=== PATIENT | male | born 1985 | race Caucasian/White ===

== ENCOUNTER 2021-11-01 20:23 | Emergency (ER) | payer SELFPAY ==
--- NOTE | 2021-11-01 23:11 | NUR ---
Pt not in waiting room.
== END 2021-11-01 23:12 | disposition left against medical advice (07) ==
LOC: ER 20:23
DX: Z53.21 Procedure and treatment not carried out due to patient leaving prior to being seen by health care provider (principal)

== ENCOUNTER 2022-09-08 13:13 | Emergency (ER) | payer MEDICAID ==
[~2022-09-08] VITALS: Ht 172.7 cm; Wt 68.0 kg
--- NOTE | 2022-09-08 13:58 | NUR ---
Sent [facility]aiac test to lab. Safety measures in place. Will continue to monitor.
--- NOTE | 2022-09-08 13:58 | NUR ---
Pt seen by MD for bedside eval. Safety measures in place. Will continue to monitor.
[2022-09-08 14:22] LABS: *OCCULT BLOOD STOOL NEGATIVE (NEGATIVE)
[2022-09-08 14:28] LABS: HEMATOCRIT 44.4 % (36.7-47.1); MEAN CORPUSCULAR HEMOGLOBIN 28.1 uug (23.8-33.4); MEAN CORPUSCULAR VOLUME 82.1 fL (73.0-96.2); PLATELET COUNT (AUTO) 288 K/uL (152-348)
[2022-09-08 14:45] LABS: CREATININE 1.6 mg/dL (0.6-1.3); POTASSIUM 3.3 mmol/L (3.5-5.1)
[2022-09-08 14:51] LABS: BILIRUBIN,DIRECT 0.3 mg/dL (0.0-0.2); BILIRUBIN,TOTAL 1.8 mg/dL (0.2-1.0)
--- NOTE | 2022-09-08 14:59 | NUR ---
Sent [facility] to lab.
[2022-09-08 16:04] LABS: *CLARITY,URINE CLEAR (CLEAR); *COLOR,URINE YELLOW (YELLOW); *KETONES,URINE 1+ (NEGATIVE); LEUKOCYTE ESTERASE ,URINE NEGATIVE (NEGATIVE); NITRITE, URINE NEGATIVE (NEGATIVE); UGLUCOSE NEGATIVE (NEGATIVE)
[2022-09-08 16:44] LABS: *BILIRUBIN,URIN 2+ (NEGATIVE); *BLOOD, URINE NEGATIVE (NEGATIVE); RBC,URINE 0-3 /HPF (0-3); WBC,URINE 0-3 /HPF (0-3)
--- NOTE | 2022-09-08 17:09 | NUR ---
FAXed summary report and labs to Becka (clinical case manager) from [facility]. Safety measures in place. Will continue to monitor.
[2022-09-08 17:37] VITALS: O2SAT 97
--- NOTE | 2022-09-08 17:47 | NUR ---
Contacted Patti from [facility]. BLS will arrive to pick pt up at [phone]. [address] measures in place. Will continiue to monitor.
--- NOTE | 2022-09-08 18:01 | NUR ---
Gave report to Lyle LUONG). Safety measures in place. Will continue to monitor.
--- NOTE | 2022-09-08 19:07 | NUR ---
Gave report to Benton from [facility].
--- NOTE | 2022-09-08 19:17 | NUR ---
Pt transferred and left ER in stable condition. All belongings are with Pt. Safety measures in place. Will continue to monitor.
== END 2022-09-08 19:25 | disposition short-term general hospital (02) ==
LOC: ER 13:13
DX: R19.7 Diarrhea, unspecified (principal); R62.7 Adult failure to thrive; I25.2 Old myocardial infarction; F15.10 Other stimulant abuse, uncomplicated; Z68.22 Body mass index [BMI] 22.0-22.9, adult; Z59.00 Homelessness unspecified; Z20.822 Contact with and (suspected) exposure to COVID-19
CPT/HCPCS: 36415; 83690; 85025; 87536; 87806; A4663

== ENCOUNTER 2023-04-14 10:32 | Emergency (ER) | payer MEDICAID, OTHER ==
[~2023-04-14] VITALS: Ht 172.7 cm; Wt 59.0 kg
[2023-04-14] MEDS ORDERED: HYDR28.316 TP (11:11)
[2023-04-14] MEDS: IV NORMAL SALINE 1000 ML BAG IV ONE (11:12)
[2023-04-14 11:16] LABS: BASOPHILS # (AUTO) 0.4 K/UL (0.0-0.2); BASOPHILS % (AUTO) 4.1 % (0.0-2.0); EOSINOPHILS # (AUTO) 0.1 K/uL (0.0-0.7); EOSINOPHILS % (AUTO) 1.4 % (0.0-7.0); HEMATOCRIT 41.4 % (36.7-47.1); HEMOGLOBIN 14.3 g/dL (12.5-16.3); LYMPHOCYTES % (AUTO) 9.4 % (20.5-51.5); MEAN CORPUSCULAR HEMOGLOBIN 28.2 uug (23.8-33.4); MEAN CORPUSCULAR HGB CONC 35 g/dL (32.5-36.3); MEAN CORPUSCULAR VOLUME 81.6 fL (73.0-96.2); MONOCYTES # (AUTO) 0.5 K/uL (0.1-1.30); MONOCYTES % (AUTO) 4.5 % (0.0-11.0); NEUTROPHILS # (AUTO) 8.9 K/uL (1.8-8.9); NEUTROPHILS % (AUTO) 80.6 % (38.5-71.5); PLATELET COUNT (AUTO) 307 K/uL (152-348); RED BLOOD CELL COUNT(AUTO) 5.07 MIL/uL (4.06-5.63); RED CELL DISTRIBUTION WIDTH 13.4 % (12.1-16.2)
[2023-04-14 11:28] LABS: CREATININE 1.3 mg/dL (0.6-1.3); POTASSIUM 3.7 mmol/L (3.5-5.1)
[2023-04-14 11:34] LABS: ALBUMIN 4.1 g/dL (3.4-5.0); BILIRUBIN,DIRECT 0.2 mg/dL (0.0-0.2)
[2023-04-14 11:43] LABS: ETHANOL < 3 MG/DL (0-10)
[2023-04-14 12:44] VITALS: BP 122/81; O2SAT 100
== END 2023-04-14 12:30 | disposition home or self-care (01) ==
LOC: ER 10:32
DX: K64.9 Unspecified hemorrhoids (principal); R19.7 Diarrhea, unspecified; Z79.899 Other long term (current) drug therapy; Z59.00 Homelessness unspecified
CPT/HCPCS: 80076; 80048; 83690; 85025; 36415; 99283; 96360; 80320; J7040; A4606; A4663; G0480